=== PATIENT | female | born 1995 | race Caucasian/White ===

== ENCOUNTER 2017-03-06 16:47 | Emergency (ER) | payer BC, OTHER ==
[2017-03-06 18:55] LABS: CHLORIDE,CL 106 mmol/L (98-110); SODIUM,NA 140 mmol/L (136-146)
--- NOTE | 2017-03-06 19:30 | EDM.PDOC ---
ED HPI GENERAL MEDICAL PROBLEM - General Chief Complaint: Skin Complaint Stated Complaint: RASH/CHEST Time Seen by Provider: 03/06/17 18:00 Source of Information: Reports: Patient History Limitations: Reports: No Limitations - History of Present Illness INITIAL COMMENTS - FREE TEXT/NARRATIVE: HISTORY AND PHYSICAL: History of present illness: [Pt comes to the ER complaining of a red, flat rash across her chest, back, abdomen and upper extremities. She first noticed it this morning. Over the past week she has had a headache to the back of her head and states that she has felt more warm than normal. She has swollen lymph node behind her left ear which has been tender. Denies neck pain or stiffness. She has not checked her temperature. No cough or sore throat. No chest pain, shortness of breath or difficulty breathing. No abdominal pain, nausea, vomiting or change in her bowel or bladder. A nice pain and itching with the rash. Denies sores in her mouth. No genital lesions. She admits to a lot of increased stress over the past week with the passing of a family member and 2 coworkers quitting their jobs, leaving the patient more work to do. Mom presents with patient to the emergency room and states her concern that patient may have West Nile virus. Mom had this in 2012 and states that patient' s symptoms are very similar. She would like to have patient tested for West Nile virus today. Mom is also heard rumor of on O being prevalent in [facility] and would like a mono tests completed as well. 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 Can't remember if she received meningococcal immunization prior to college. Review of systems: As per history of present illness and below otherwise all systems reviewed and negative. Past medical history: As per history of present illness and as reviewed below otherwise noncontributory. Surgical history: As per history of present illness and as reviewed below otherwise noncontributory. Social history: No reported history of drug or alcohol abuse. Family history: As per history of present illness and as reviewed below otherwise noncontributory. Physical exam: Gen.: Well-developed well-nourished female in no acute distress. HEENT: Atraumatic, normocephalic. TMs are pearly ngo and without erythema or effusion bilaterally. Oral mucous membranes are pink and moist. No oral lesions appreciated. No tonsillar swelling, erythema or exudate. Face is nontender with palpation. Enlarged, nontender postauricular lymph node on the left. Neck: Supple, no rigidity. No anterior or posterior cervical lymphadenopathy. Range of motion is full and smooth. No complaints of pain. Lungs: Clear to auscultation, breath sounds equal bilaterally, chest nontender. Heart: S1S2, regular rate and rhythm. Abdomen: Soft, nondistended, nontender. Negative for masses or guarding. Negative for costovertebral tenderness. Skin: Warm dry pink and intact. Erythematous maculopapular rash scattered across chest and upper extremities. Also present to a lesser degree over mid back. No blanching or tenderness with palpation. Pelvis: Stable nontender. Genitourinary: Deferred. Rectal: Deferred. Extremities: Atraumatic. Neurovascular unremarkable. Neuro: Awake, alert, oriented. Motor and sensory unremarkable throughout. Exam nonfocal. Diagnostics: [CBC, CMP, West Nile virus, mono] Impression: [Maculopapular rash] Plan: [Discussed with patient and mom that West Nile test results will not be available for about 1 week. Grafton negative. White blood cell count 2.83. Other labs are largely unremarkable. Reviewed with mom and patient that rash may be viral in nature. recommend continued monitoring at this time. Recommend close follow-up with PCP for continued follow-up. We discussed strict return precautions. Mom and patient are in agreement with today's plan. All questions are answered and concerns are addressed.] Definitive disposition and diagnosis as appropriate pending reevaluation and review of above. - Related Data Allergies Allergy/AdvReac Type Severity Reaction Status Date / Time No Known Allergies Allergy Verified 03/06/17 17:21 Home Meds: Home Meds . [No Known Home Meds] 03/06/17 [History] Past Medical History - Past Health History Medical/Surgical History: Denies Medical/Surgical History - Infectious Disease History Infectious Disease History: Reports: Chicken Pox Social & Family History - Family History Family Medical History: Noncontributory - Tobacco Use Smoking Status *Q: Never Smoker - Caffeine Use Caffeine Use: Reports: None - Recreational Drug Use Recreational Drug Use: No ED ROS GENERAL - Review of Systems Review Of Systems: ROS reveals no pertinent complaints other than HPI. ED EXAM, SKIN/RASH Exam: See Below Course - Vital Signs Last Recorded V/S: Last Vital Signs Temp 97.7 F 03/06/17 19:45 Pulse 95 03/06/17 19:45 Resp 20 03/06/17 19:45 BP 103/69 03/06/17 19:45 Pulse Ox 95 03/06/17 19:45 - Orders/Labs/Meds Orders: Active Orders 24 hr Category Date Time Status WEST NILE VIRUS PANEL IGG,IGM [REF] Stat Lab 03/06/17 18:27 Received Labs: Laboratory Tests 03/06/17 03/06/17 03/06/17 Range/Units 18:27 18:27 18:27 WBC 2.83 L (4.0-11.0) K/uL RBC 4.97 (4.30-5.90) M/uL Hgb 13.6 (12.0-16.0) g/dL Hct 41.4 (36.0-46.0) % MCV 83.3 (80.0-98.0) fL MCH 27.4 (27.0-32.0) pg MCHC 32.9 (31.0-37.0) g/dL RDW Std Deviation 41.9 (28.0-62.0) fl RDW Coeff of Amanda 14 (11.0-15.0) % Plt Count 165 (150-400) K/uL MPV 10.20 (7.40-12.00) fL Neut % (Auto) 46.6 L (48.0-80.0) % Lymph % (Auto) 38.9 (16.0-40.0) % G[place] % (Auto) 14.1 (0.0-15.0) % Eos % (Auto) 0.0 (0.0-7.0) % Baso % (Auto) 0.4 (0.0-1.5) % Neut # (Auto) 1.3 L (1.4-5.7) K/uL Lymph # (Auto) 1.1 (0.6-2.4) K/uL G[place]on # (Auto) 0.4 (0.0-0.8) K/uL Eos # (Auto) 0.0 (0.0-0.7) K/uL Baso # (Auto) 0.0 (0.0-0.1) K/uL Nucleated RBC % 0.0 /100WBC Nucleated RBCs # 0 K/uL Sodium 140 (136-146) mmol/L Potassium 3.8 (3.5-5.1) mmol/L Chloride 106 (98-110) mmol/L Carbon Dioxide 23 (21-31) mmol/L BUN 9 (6.0-23.0) mg/dL Creatinine 0.8 (0.6-1.5) mg/dL Est Cr Clr Drug Dosing 95.25 mL/min Estimated GFR (MDRD) > 60.0 ml/min Glucose 91 (60-110) mg/dL Calcium 8.7 L (8.8-10.8) mg/dL Total Bilirubin 0.9 (0.1-1.5) mg/dL AST 23 (5-40) IU/L ALT 22 (8-54) IU/L Alkaline Phosphatase 50 (40-150) Total Protein 8.5 H (6.0-8.0) g/dL Albumin 4.5 (3.5-5.0) g/dL Globulin 4.0 H (2.0-3.5) g/dL Albumin/Globulin Ratio 1.1 L (1.3-2.8) Monoscreen NEGATIVE (NEG) Departure - Departure Time of Disposition: 19:30 Disposition: Home, Self-Care 01 Condition: Good Clinical Impression: Maculopapular rash - Discharge Information Instructions: Rash Referrals: Radha Colon LEGAL COORDINATOR [Primary Care Provider] - Forms: ED Department Discharge Additional Instructions: The following information is given to patients seen in the emergency department who are being discharged to home. This information is to outline your options for follow-up care. We provide all patients seen in our emergency department with a follow-up referral. The need for follow-up, as well as the timing and circumstances, are variable depending upon the specifics of your emergency department visit. If you don't have a primary care physician on staff, we will provide you with a referral. We always advise you to contact your personal physician following an emergency department visit to inform them of the circumstance of the visit and for follow-up with them and/or the need for any referrals to a consulting specialist. The emergency department will also refer you to a specialist when appropriate. This referral assures that you have the opportunity for follow-up care with a specialist. All of these measure are taken in an effort to provide you with optimal care, which includes your follow-up. Under all circumstances we always encourage you to contact your private physician who remains a resource for coordinating your care. When calling for follow-up care, please make the office aware that this follow-up is from your recent emergency room visit. If for any reason you are refused follow-up, please contact the [facility] emergency department at and asked to speak to the emergency department charge nurse. [facility] [address] [place] [id number] Follow-up with your primary care provider and 4-5 days. Continue to monitor symptoms and return to ER as needed as discussed. - My Orders Last 24 Hours: My Active Orders 03/06/17 18:27 WEST NILE VIRUS PANEL IGG,IGM [REF] Stat - Assessment/Plan Last 24 Hours: My Active Orders 03/06/17 18:27 WEST NILE VIRUS PANEL IGG,IGM [REF] Stat
[2017-03-06 19:56] VITALS: BP 103/69
== END 2017-03-06 19:47 | disposition home or self-care (01) ==
LOC: MW.ED 16:47
DX: R21 Rash and other nonspecific skin eruption (principal)
CPT/HCPCS: 36415; 80053; 85025; 86308; 86788; 86789; 99283